=== PATIENT | male | born 1985 | race Caucasian/White ===

== ENCOUNTER 2018-07-02 17:12 | Emergency (ER) | payer SELFPAY ==
[2018-07-02] MEDS ORDERED: NACL 0.9% 1000 ML 1,000 ML IV ONE ×2 (17:37→20:58)
[2018-07-02 18:07] LABS: Basophils # (Auto) 0.1 K/mm3 (0.0-0.1); Basophils % (Auto) 0.6 % (0.0-1.8); Eosinophils % (Auto) 0.2 % (0.0-4.3); Hematocrit 41.9 % (35.5-45.6); Hemoglobin 14.5 gm/dl (11.8-15.2); Lymphocytes # (Auto) 0.8 K/mm3 (1.2-5.4); Lymphocytes % (Auto) 9.9 % (13.4-35.0); Mean Corpuscular HGB Conc 35 % (32-34); Mean Corpuscular Volume 87 fl (84-94); Monocytes # (Auto) 0.6 K/mm3 (0.0-0.8); Monocytes % (Auto) 6.8 % (0.0-7.3); Platelet Count 224 K/mm3 (140-440); Red Blood Count 4.84 M/mm3 (3.65-5.03); Red Cell Distribution Width 13.2 % (13.2-15.2)
[2018-07-02 18:24] LABS: Alanine Aminotransferase 21 units/L (7-56); Albumin 4.3 g/dL (3.9-5); BUN/Creatinine Ratio 14; Blood Urea Nitrogen 13 mg/dL (9-20); Calcium 8.6 mg/dL (8.4-10.2); Hemolysis Index 10
[2018-07-02 20:06] VITALS: BP 128/59
[2018-07-02 20:07] LABS: Bilirubin,Urine NEG (Negative); Blood,Urine SM (Negative); Color,Urine Yellow (Yellow); Mucus,Urine FEW /HPF; Urobilinogen,Urine < 2.0 mg/dL (<2.0)
[2018-07-02] MEDS ORDERED: ZOFRAN IV ONE (20:58)
[2018-07-02] MEDS ORDERED: SUBLIMAZE IV ONE (20:58)
[2018-07-02] MEDS ORDERED: TYLENOL PO ONE (20:59)
--- NOTE | 2018-07-02 21:00 | Emergency Department Report ---
ED General Adult HPI - General Chief complaint: Abdominal Pain Stated complaint: ABD PAIN/FEVER/VOMITING Time Seen by Provider: 07/02/18 20:53 Source: patient, RN notes reviewed, old records reviewed Mode of arrival: Ambulatory Limitations: Other (patient speaks some Telugu. Patient also speaks Swedish. This provider is conversational iN Swedish) - History of Present Illness Initial comments: This is a 33-year-old gentleman, who is not known to this provider previously, who sent to the ER from a local medical clinic to exclude appendicitis. Patient complains of one to 2 days of epigastric and migratory right lower quadrant pain, nausea vomiting, chills, fatigue. Also endorses headache. He believes that he had a flu shot, but is not sure. He reports that his symptoms have been constant, abdominal pain increases with palpation, decreases with rest, is migratory, radiates to the right lower quadrant, and denies testicular pain, urinary symptoms. -: Gradual Location: abdomen Radiation: periumbillical Severity scale (0 -10): 5 Consistency: constant Improves with: medication, rest Worsens with: movement Associated Symptoms: cough, fever/chills, headaches, loss of appetite, malaise, nausea/vomiting. denies: confusion, chest pain, diaphoresis, rash, seizure, shortness of breath, syncope - Related Data Previous Rx's Medication Instructions Recorded Last Taken Type Acetaminophen [Tylenol Arthritis] 650 mg PO Q6HR PRN #30 tablet.er 07/02/18 Unknown Rx Ibuprofen [Motrin] 600 mg PO Q8H PRN #30 tablet 07/02/18 Unknown Rx Ondansetron [Zofran Odt] 4 mg PO Q8HR PRN #20 tab.rapdis 07/02/18 Unknown Rx Oseltamivir Phosphate [Tamiflu] 75 mg PO BID #9 capsule 07/02/18 Unknown Rx Allergies Allergy/AdvReac Type Severity Reaction Status Date / Time No Known Allergies Allergy Verified 07/02/18 21:25 ED Review of Systems ROS: Stated complaint: ABD PAIN/FEVER/VOMITING Other details as noted in HPI Constitutional: fever, malaise, weakness Eyes: denies: eye discharge ENT: denies: epistaxis Respiratory: denies: wheezing Cardiovascular: denies: chest pain Gastrointestinal: abdominal pain Genitourinary: denies: dysuria, testicular pain Musculoskeletal: arthralgia, myalgia Skin: denies: lesions Neurological: headache, weakness Psychiatric: anxiety ED Past Medical Hx - Past Medical History Previous Medical History?: No - Surgical History Past Surgical History?: No - Social History Smoking Status: Never Smoker Substance Use Type: None - Medications Home Medications: Home Medications Medication Instructions Recorded Confirmed Last Taken Type Acetaminophen [Tylenol Arthritis] 650 mg PO Q6HR PRN #30 tablet.er 07/02/18 Unknown Rx Ibuprofen [Motrin] 600 mg PO Q8H PRN #30 tablet 07/02/18 Unknown Rx Ondansetron [Zofran Odt] 4 mg PO Q8HR PRN #20 tab.rapdis 07/02/18 Unknown Rx Oseltamivir Phosphate [Tamiflu] 75 mg PO BID #9 capsule 07/02/18 Unknown Rx ED Physical Exam - General Limitations: Language Barrier General appearance: alert, anxious - Head Head exam: Present: atraumatic, normocephalic - Eye Eye exam: Present: normal appearance, EOMI. Absent: nystagmus - ENT ENT exam: Present: normal exam, normal orophraynx, mucous membranes moist, normal external ear exam - Neck Neck exam: Present: normal inspection, full ROM. Absent: tenderness, meningismus - Respiratory Respiratory exam: Present: normal lung sounds bilaterally. Absent: respiratory distress - Cardiovascular Cardiovascular Exam: Present: regular rate, normal rhythm, normal heart sounds. Absent: bradycardia, tachycardia, irregular rhythm, systolic murmur, diastolic murmur, rubs, gallop - GI/Abdominal GI/Abdominal exam: Present: soft, tenderness, other (periumbilical, right lower quadrant pain, no rebound, guarding or peritoneal signs). Absent: distended, guarding, rebound, rigid, pulsatile mass - Rectal Rectal exam: Present: deferred - exam: Present: normal inspection, other (there is no testicular tenderness. There is normal testicular lie bilaterally. There is normal cremasteric reflex bilaterally.). Absent: testicular tenderness External exam: Present: normal external exam, other (chaperoned by nurse IQRA CEE). Absent: erythema, swelling - Extremities Exam Extremities exam: Present: normal inspection, full ROM, other (2+ pulses noted in the bilateral upper, lower extremities. Compartments soft. No long bony tenderness. The pelvis is stable.). Absent: pedal edema, joint swelling, calf tenderness - Back Exam Back exam: Present: normal inspection, full ROM. Absent: tenderness, CVA tenderness (R), paraspinal tenderness, vertebral tenderness - Neurological Exam Neurological exam: Present: alert, oriented X3, CN II-XII intact, other (Extraocular movements intact. Tongue midline. No facial droop. Facial sensation intact to light touch in the V1, V2, V3 distribution bilaterally. 5 and 5 strength in 4 extremities.. Sensation is intact to light touch in 4 extremities.). Absent: motor sensory deficit - Psychiatric Psychiatric exam: Present: anxious - Skin Skin exam: Present: warm, dry, intact, normal color. Absent: rash ED Course Vital Signs 07/02/18 07/02/18 17:34 20:01 Temperature 100.1 F H 99.5 F Pulse Rate 92 H 86 Respiratory 20 16 Rate Blood Pressure 102/60 Blood Pressure 128/59 [Right] O2 Sat by Pulse 98 98 Oximetry - Reevaluation(s) Reevaluation #1: 07/02/18 21:42 Differential diagnosis, including but not limited to: Renal colic, urinary tract infection, appendicitis, pneumonia, influenza, influenza-like illness Assessment and plan: 33-year-old gentleman with abdominal pain, tenderness, low- grade fever, also endorsing chills, myalgias, body aches. Screening laboratory studies reviewed and appreciated, CT scan of the abdomen pelvis is pending, urinalysis, flu swab pending at this time. We will treat the patient's pain is symptoms, and we will reassess after his diagnostics have resulted. 07/02/18 23:41 Reevaluation #2: 07/02/18 23:[address] scan of the abdomen and pelvis is negative for acute disease. Rapid influenza A is positive. Strep screen negative. Patient has been reassessed by this provider multiple times while in the department, his abdominal tenderness has completely resolved, he is currently afebrile, with reassuring vital signs, resting currently, and does not appear to be in any significant distress at this point in time. Patient will be started on Tamiflu, he will be given pain medication and nausea medication, and he is instructed to follow up in 2-3 days for repeat checkup/evaluation. ED Medical Decision Making - Lab Data Result diagrams: 07/02/18 17:42 07/02/18 17:42 Vital Signs 07/02/18 07/02/18 17:34 20:01 Temperature 100.1 F H 99.5 F Pulse Rate 92 H 86 Respiratory 20 16 Rate Blood Pressure 102/60 Blood Pressure 128/59 [Right] O2 Sat by Pulse 98 98 Oximetry Lab Results 07/02/18 07/02/18 07/02/18 Range/Units 17:42 17:42 19:49 WBC 8.4 (4.5-11.0) K/mm3 RBC 4.84 (3.65-5.03) M/mm3 Hgb 14.5 (11.8-15.2) gm/dl Hct 41.9 (35.5-45.6) % MCV 87 (84-94) fl MCH 30 (28-32) pg MCHC 35 H (32-34) % RDW 13.2 (13.2-15.2) % Plt Count 224 (140-440) K/mm3 Lymph % (Auto) 9.9 L (13.4-35.0) % [place] % (Auto) 6.8 (0.0-7.3) % Eos % (Auto) 0.2 (0.0-4.3) % Baso % (Auto) 0.6 (0.0-1.8) % Lymph # 0.8 L (1.2-5.4) K/mm3 [place] # 0.6 (0.0-0.8) K/mm3 Eos # 0.0 (0.0-0.4) K/mm3 Baso # 0.1 (0.0-0.1) K/mm3 Seg Neutrophils % 82.5 H (40.0-70.0) % Seg Neutrophils # 6.9 (1.8-7.7) K/mm3 Sodium 134 L (137-145) mmol/L Potassium 4.0 (3.6-5.0) mmol/L Chloride 98.3 (98-107) mmol/L Carbon Dioxide 23 (22-30) mmol/L Anion Gap 17 mmol/L BUN 13 (9-20) mg/dL Creatinine 0.9 (0.8-1.5) mg/dL Estimated GFR > 60 ml/min BUN/Creatinine Ratio 14 % Glucose 113 H (75-100) mg/dL Calcium 8.6 (8.4-10.2) mg/dL Total Bilirubin 0.30 (0.1-1.2) mg/dL AST 27 (5-40) units/L ALT 21 (7-56) units/L Alkaline Phosphatase 56 (35-129) units/L Total Protein 7.3 (6.3-8.2) g/dL Albumin 4.3 (3.9-5) g/dL Albumin/Globulin Ratio 1.4 % Urine Color Yellow (Yellow) Urine Turbidity Clear (Clear) Urine pH 5.0 (5.0-7.0) Ur Specific [place] 1.030 (1.003-1.030) Urine Protein 30 mg/dl (Negative) mg/dL Urine Glucose (UA) Neg (Negative) mg/dL Urine Ketones 20 (Negative) mg/dL Urine Blood Sm (Negative) Urine Nitrite Neg (Negative) Urine Bilirubin Neg (Negative) Urine Urobilinogen < 2.0 (<2.0) mg/dL Ur Leukocyte Esterase Neg (Negative) Urine WBC (Auto) 1.0 (0.0-6.0) /HPF Urine RBC (Auto) 10.0 (0.0-6.0) /HPF U Epithel Cells (Auto) 1.0 (0-13.0) /HPF Urine Mucus Few /HPF Critical care attestation.: If time is entered above; I have spent that time in minutes in the direct care of this critically ill patient, excluding procedure time. ED Disposition Clinical Impression: Influenza, Abdominal pain Disposition: DC-01 TO HOME OR SELFCARE Is pt being admited?: No Does the pt Need Aspirin: No Condition: Stable Instructions: Influenza (ED), Abdominal Pain (ED) Additional Instructions: Take the medications as needed/directed. Drink plenty of fluids, advance diet as tolerated. Follow up in 2-3 days for repeat checkup/evaluation. Patient may follow up with any of the list of clinics, or patient may return to the emergency room for repeat checkup/evaluation. Patient will likely continue to have fevers, this is normal and expected with influenza. Patient may alternate acetaminophen, prescribed, with ibuprofen, also prescribed. Please return to the ER right away with projectile vomiting, change in mental status, confusion, inability to speak, inability to breathe, new, worsening or different symptoms. Opal los medicamentos segn sea necesario / dirigido. Lamar muchos lquidos, avance la dieta segn lo tolere. Seguimiento en 2-3 peguero para repetir la revisin / evaluacin. El paciente puede seguir con cualquiera de la lista de clnicas, o puede regresar a la alanna de emergencias para repetir el chequeo / evaluacin. El paciente probablemente continuar teniendo fiebre, esto es normal y se espera con la influenza. El paciente puede alternar el paracetamol, prescrito, con ibuprofeno, tambin prescrito. Regrese de inmediato a la alanna de emergencias con vmitos, cambios en el estado mental, confusin, incapacidad para hablar, incapacidad para respirar, sntomas nuevos, que empeoran o diferentes. Referrals: [facility] [Provider Group] - 3-5 Days Forms: Work/School Release Form(ED) Print Language: LUXEMBOURGER
--- NOTE | 2018-07-02 22:15 | Cat Scan Report ---
FINAL REPORT PROCEDURE: CT abdomen and pelvis with contrast. TECHNIQUE: Computerized axial tomography of the abdomen and pelvis was performed after the IV inject ion of iodinated nonionic contrast. HISTORY: Fever, lower abdominal pain. COMPARISON: No prior studies are available for comparison. FINDINGS: The lung bases are clear. There are no pleural effusions. The heart size is normal. The liver, pancre as and spleen appear normal. The gallbladder is present. There is no biliary dilatation. The adrenal glands are not enlarged. Both kidneys appear normal in size and configuration. The abdominal aorta patricio s a normal caliber. There is no retroperitoneal adenopathy. The unopacified gastrointestinal tract is unremarkable. A normal appendix is visible. The bladder, seminal vesicles and prostate appear normal . The regional skeleton appears intact. IMPRESSION: Normal studies of the abdomen and pelvis.
--- NOTE | 2018-07-02 23:06 | XRay Report ---
FINAL REPORT PROCEDURE: Chest. TECHNIQUE: PA and lateral views. HISTORY: fever, cough, weakness COMPARISON: No prior studies are available for comparison. FINDINGS: The heart and mediastinum appear normal. The lungs are clear and well expanded. There are no pleural effusions. The soft tissues and regional skeleton are unremarkable. IMPRESSION: Normal study.
[2018-07-02] MEDS ORDERED: TAMIFLU PO STA (23:43)
== END 2018-07-03 00:15 | disposition home or self-care (01) ==
LOC: ED 17:12
DX: J11.1 Influenza due to unidentified influenza virus with other respiratory manifestations (principal)
CPT/HCPCS: 36415; 71046; 74177; 80053; 81001; 82550; 85025; 87116; 87400; 87430; 96361; 96374; 96375; 99284; J2405; J3010; J7030; Q9967